=== PATIENT | male | born 1960 | race Caucasian/White ===

== ENCOUNTER 2022-05-26 09:28 | Outpatient (CLI) | payer OTHER | END 2022-05-26 09:29 | disposition home or self-care (01) | LOC: SCSMRI 09:28 | PROVIDERS: ATTEND Orthopaedic Surgery | DX: M24.811 Other specific joint derangements of right shoulder, not elsewhere classified (principal); S46.211A Strain of muscle, fascia and tendon of other parts of biceps, right arm, initial encounter; S43.431A Superior glenoid labrum lesion of right shoulder, initial encounter; M65.811 Other synovitis and tenosynovitis, right shoulder; M25.411 Effusion, right shoulder; M89.8X1 Other specified disorders of bone, shoulder; M75.111 Incomplete rotator cuff tear or rupture of right shoulder, not specified as traumatic; M25.811 Other specified joint disorders, right shoulder ==

== ENCOUNTER 2022-06-27 11:41 | Outpatient (CLI) | payer OTHER | END 2022-06-27 11:42 | disposition home or self-care (01) | LOC: LABBT 11:41 | PROVIDERS: ATTEND Orthopaedic Surgery | DX: Z01.812 Encounter for preprocedural laboratory examination (principal); Z20.822 Contact with and (suspected) exposure to COVID-19 | CPT/HCPCS: 87811 ==

== ENCOUNTER 2022-06-29 06:50 | Day surgery (SDC) | payer OTHER ==
[2022-06-21 12:43] VITALS: BMI 28.8
[2022-06-29] MEDS ORDERED: Ropivacaine 0.5% HCl/PF (150 MG/30 ML VIAL) ONE (08:45)
[2022-06-29] MEDS ORDERED: Fentanyl 100 MCG/2 ML VIAL ONE (08:45)
[2022-06-29] MEDS ORDERED: Midazolam HCl 2 mg/2 ml Vial ONE (08:45)
[2022-06-29] MEDS ORDERED: HYDROcodone/Acetaminophen 5/325 mg Tablet PO PRN ×2 (10:00)
[2022-06-29] MEDS ORDERED: Promethazine HCl 25 MG/ML VIAL IM PRN (10:00)
[2022-06-29] MEDS ORDERED: Ondansetron PF 4 MG/2 ML Vial IVP PRN (10:00)
[2022-06-29] MEDS ORDERED: traMADol HCl 50 MG TAB PO PRN ×2 (10:00)
[2022-06-29] MEDS ORDERED: Ropivacaine 0.2% 550 ML 550 ML NERVE BLCK SCH (10:00)
[2022-06-29] MEDS ORDERED: Zolpidem Tartrate 5 MG TAB PO PRN (10:00)
[2022-06-29] MEDS ORDERED: Ketorolac Tromethamine 30 MG/ML VIAL IVP PRN (10:00)
[2022-06-29] MEDS ORDERED: fentaNYL Citrate/PF 100 MCG/2 ML SYRINGE ONE (10:42)
[2022-06-29] MEDS ORDERED: EPINEPHrine 1 MG/ML AMP ONE (10:57)
[2022-06-29] MEDS ORDERED: Bupivacaine PF 0.5% 30 ML VIAL ONE (10:57)
[2022-06-29] MEDS ORDERED: CEFAZOLIN 2 GM VIAL ONE (11:04)
[2022-06-29] MEDS ORDERED: Sodium Chloride 0.9% 100 ML ONE (11:04)
[2022-06-29] MEDS ORDERED: PROPOFOL 200 MG/20 ML VIAL ONE (11:12)
[2022-06-29] MEDS ORDERED: PHENYLEPHRINE-NS 100 MCG/ML 10 ML SYRINGE ONE (11:12)
[2022-06-29] MEDS ORDERED: ePHEDrine 50 MG/ML VIAL ONE (11:12)
[2022-06-29] MEDS ORDERED: Glycopyrrolate 0.2 MG/ML 5 ML SYRINGE ONE (11:12)
[2022-06-29] MEDS ORDERED: Rocuronium Bromide 10 MG/ML (10ML VIAL) ONE (11:12)
[2022-06-29] MEDS ORDERED: Ondansetron PF 4 MG/2 ML Vial ONE (11:12)
[2022-06-29] MEDS ORDERED: Dexamethasone 20 MG/5 ML VIAL ONE (11:12)
[2022-06-29] MEDS ORDERED: SUGAMMADEX SODIUM 200 MG/2 ML VIAL ONE (12:23)
== END 2022-06-29 15:17 | disposition home or self-care (01) ==
LOC: SDC 06:50
PROVIDERS: ATTEND Orthopaedic Surgery
PROC: 0RBJ4ZZ Excision of Right Shoulder Joint, Percutaneous Endoscopic Approach (ICD-10-PCS; principal; 2022-06-29)
PROC: 0RHJ04Z Insertion of Internal Fixation Device into Right Shoulder Joint, Open Approach (ICD-10-PCS; principal; 2022-06-29)
PROC: 0LS30ZZ Reposition Right Upper Arm Tendon, Open Approach (ICD-10-PCS; principal; 2022-06-29)
DX: M75.111 Incomplete rotator cuff tear or rupture of right shoulder, not specified as traumatic (principal); S46.211A Strain of muscle, fascia and tendon of other parts of biceps, right arm, initial encounter; S43.431A Superior glenoid labrum lesion of right shoulder, initial encounter; M65.811 Other synovitis and tenosynovitis, right shoulder; J30.2 Other seasonal allergic rhinitis; Z86.16 Personal history of COVID-19; Z87.891 Personal history of nicotine dependence
CPT/HCPCS: A4306; C1713; J0171; J0690; J1100; J2250; J2405; J2704; J2795; J3010; J3490; S0020

== ENCOUNTER 2023-04-28 08:03 | Outpatient (CLI) | payer OTHER ==
[2023-04-28 08:56] LABS: #Eosinphils 0.3 10x3/uL (0.0-0.5); #Neutrophils 4.2 10x3/uL (1.5-8.4); %Basophils 0.5 % (0.0-2.0); %Eosinophils 4.5 % (0.0-6.0); %Lymphocytes 24.7 % (18.0-47.0); %Monocytes 13.2 % (0.0-10.0); %Neutrophils 56.8 % (40.0-75.0); Hematocrit 47.5 % (38.8-50.0); Hemoglobin 15.8 g/dL (13.5-17.5); Mean Corpuscular HGB CONC 33.3 g/dL (32.0-36.0); Mean Corpuscular Hemoglobin 27.3 pg (27.0-33.0); Mean Platelet Volume 9.6 fl (7.4-10.4); Platelet Count 251 10x3/uL (150-450); RBC Distribution Width 14.1 % (11.5-14.5); Red Blood Cell (RBC) Count 5.79 10x6/uL (4.32-5.72); White Blood Cell (WBC) Count 7.4 10x3/uL (3.5-10.5)
[2023-04-28 09:13] LABS: Prothrombin Time 10.6 sec (9.5-12.1)
[2023-04-28 09:30] LABS: Anion Gap 13 mmol/L (10-20); BUN (Urea Nitrogen) 14 mg/dL (8.4-25.7); Calc. Creatinine Clearance 0 mL/min (70-130); Calcium 9.4 mg/dL (7.8-10.44); Carbon Dioxide 24 mmol/L (23-31); Chloride 108 mmol/L (98-107); Estimated GFR 83; Glucose 105 mg/dL (80-115); Potassium 4.4 mmol/L (3.5-5.1); Sodium 141 mmol/L (136-145)
== END 2023-04-28 08:04 | disposition home or self-care (01) ==
LOC: LABBT 08:03
PROVIDERS: ATTEND Orthopaedic Surgery
DX: Z01.818 Encounter for other preprocedural examination (principal); M17.12 Unilateral primary osteoarthritis, left knee
CPT/HCPCS: 80048; 85025; 85610; 87081; 93005; 93010

== ENCOUNTER 2023-05-02 06:42 | Observation (INO) | payer OTHER ==
[2023-04-28 08:31] VITALS: BMI 28.8
[2023-05-02] MEDS ORDERED: Tranexamic Acid 1,000 MG/10 ML VIAL ONE (07:12)
[2023-05-02] MEDS ORDERED: Sodium Chloride 0.9% 100 ML ONE ×2 (07:13→10:08)
[2023-05-02] MEDS ORDERED: Vancomycin (BATCH) 1.5 GRAM/300 ML BAG ONE (07:13)
[2023-05-02] MEDS ORDERED: Midazolam HCl 2 mg/2 ml Vial ONE (08:49)
[2023-05-02] MEDS ORDERED: Bupivacaine PF 0.5% 30 ML VIAL ONE (08:49)
[2023-05-02] MEDS ORDERED: fentaNYL 50 mcg/mL 1 mL Vial ONE ×6 (08:49→12:50)
[2023-05-02] MEDS ORDERED: Acetaminophen 325 MG TAB PO PRN (09:47)
[2023-05-02] MEDS ORDERED: diphenhydrAMINE 25 MG CAP PO PRN (09:47)
[2023-05-02] MEDS ORDERED: Promethazine HCl 25 MG/ML VIAL IM PRN ×2 (09:47→11:07)
[2023-05-02] MEDS ORDERED: Zolpidem Tartrate 5 MG TAB PO PRN (09:47)
[2023-05-02] MEDS ORDERED: Ondansetron PF 4 MG/2 ML Vial IVP PRN (09:47)
[2023-05-02] MEDS ORDERED: EPINEPHrine 1 MG/ML AMP ONE (09:52)
[2023-05-02] MEDS ORDERED: Bupivacaine 0.25% HCL 30 ML VIAL ONE (09:52)
[2023-05-02] MEDS ORDERED: fentaNYL 50 mcg/mL 1 mL Vial SLOW IVP PRN (10:02)
[2023-05-02] MEDS ORDERED: CEFAZOLIN 2 GM VIAL ONE (10:08)
[2023-05-02] MEDS ORDERED: HYDROcodone/Acetaminophen 10/325 mg Tablet PO PRN (10:15)
[2023-05-02] MEDS ORDERED: traMADol HCl 50 MG TAB PO PRN ×2 (10:15)
[2023-05-02] MEDS ORDERED: Ropivacaine 0.2% 550 ML 550 ML NERVE BLCK SCH (10:15)
[2023-05-02] MEDS ORDERED: PROPOFOL 200 MG/20 ML VIAL ONE (10:28)
[2023-05-02] MEDS ORDERED: Dexamethasone 20 MG/5 ML VIAL ONE (10:28)
[2023-05-02] MEDS ORDERED: ePHEDrine Sulfate 50 MG/10 ML VIAL ONE (10:28)
[2023-05-02] MEDS ORDERED: Lidocaine 1% PF 5 ML VIAL ONE (10:28)
[2023-05-02] MEDS ORDERED: Ondansetron PF 4 MG/2 ML Vial ONE (10:28)
[2023-05-02] MEDS ORDERED: Meperidine HCl/PF 25 MG/ML VIAL SLOW IVP PRN (11:07)
[2023-05-02] MEDS ORDERED: Ondansetron HCl/PF 4 MG/2 ML Vial IVP PRN (11:07)
[2023-05-02] MEDS ORDERED: HYDROmorphone 2 MG/ML VIAL SLOW IVP PRN (11:07)
[2023-05-02] MEDS ORDERED: Ketorolac Tromethamine 30 MG/ML VIAL ONE (12:29)
[2023-05-02] MEDS: Ketorolac Tromethamine 30 MG/ML VIAL IVP SCH ×2 (12:35→18:15)
[2023-05-02] MEDS ORDERED: HYDROmorphone 0.5 MG/0.5 ML SYRINGE ONE ×2 (13:04→13:19)
[2023-05-02] MEDS: Dextrose 5 %-0.45 % NaCl 1,000 ML IV SCH ×2 (14:45→23:16)
[2023-05-02] MEDS: CEFAZOLIN 2 GM in Sodium Chloride 0.9% 100 ML IVPB SCH (15:33)
[2023-05-02] MEDS: HYDROcodone/Acetaminophen 10/325 mg Tablet PO PRN ×2 (15:37→20:47)
[2023-05-02] MEDS: Aspirin 81 mg Enteric Coated Tablet PO SCH (20:46)
[2023-05-02] MEDS: Ferrous Gluconate 324 MG TAB PO SCH (20:46)
[2023-05-02] MEDS: Senokot S 8.6-50 MG TAB PO SCH (20:53)
[2023-05-03] MEDS: Ketorolac Tromethamine 30 MG/ML VIAL IVP SCH ×3 (00:57→09:09)
[2023-05-03] MEDS: CEFAZOLIN 2 GM in Sodium Chloride 0.9% 100 ML IVPB SCH (01:00)
[2023-05-03] MEDS: Dextrose 5 %-0.45 % NaCl 1,000 ML IV SCH (05:25)
[2023-05-03 05:57] LABS: Hematocrit 35.8 % (42.0-52.0); Hemoglobin 11.8 g/dL (14.0-18.0); Mean Corpuscular Hemoglobin 27.8 pg (27.0-31.0); Mean Corpuscular Volume 84.4 fl (78.0-98.0); Mean Platelet Volume 9.5 fL (7.4-10.4); Platelet Count 189 10x3/uL (130-400); RBC Distribution Width 13.4 % (11.5-14.5); Red Blood Cell (RBC) Count 4.24 mill/uL (4.70-6.10)
[2023-05-03] MEDS ORDERED: Multivitamin W/ Minerals 1 TAB PO SCH (09:00)
[2023-05-03] MEDS: Aspirin 81 mg Enteric Coated Tablet PO SCH (09:01)
[2023-05-03] MEDS: Ferrous Gluconate 324 MG TAB PO SCH (09:01)
[2023-05-03] MEDS: Senokot S 8.6-50 MG TAB PO SCH (09:01)
[2023-05-03] MEDS: HYDROcodone/Acetaminophen 10/325 mg Tablet PO PRN (09:10)
[2023-05-03 12:03] VITALS: BP 112/65; TEMP 97.5
== END 2023-05-03 12:45 | disposition home or self-care (01) ==
LOC: SDC 06:42 → SJJU 09:47
PROVIDERS: ADMIT Orthopaedic Surgery; ATTEND Orthopaedic Surgery
PROC: 0SRD0JZ Replacement of Left Knee Joint with Synthetic Substitute, Open Approach (ICD-10-PCS; principal; 2023-05-02)
DX: M17.12 Unilateral primary osteoarthritis, left knee (principal); Z87.891 Personal history of nicotine dependence
CPT/HCPCS: 36415; 85027; A4306; C1776; J0171; J1100; J1170; J1885; J2250; J2405; J2704; J2795; J3010; J3370; J3490; J7042; S0020